=== PATIENT | female | born 1990 | race Two or more races ===

== ENCOUNTER 2022-12-31 14:47 | Emergency (ER) | payer OTHER, SELFPAY ==
--- NOTE | ~2022-12-31 | CT_ITS ---
EXAMINATION: CT ABDOMEN AND PELVIS WITHOUT CONTRAST CLINICAL INFORMATION: Left lower quadrant abdominal pain COMPARISON: None available. TECHNIQUE: Multidetector volumetric imaging was performed from the superior aspect of the liver through the pubic symphysis. Sagittal and coronal reformatted images were obtained on the technologist's workstation. This CT examination was performed using dose optimization techniques as appropriate, variously including the following: *Automated exposure control *Adjustment of mA and/or kV according to patient size (this includes techniques or standardized protocols for targeted exams where dose is matched to indication/reason for exam; i.e. extremities or head) *Use of iterative reconstruction technique DLP: 554 mGy-cm FINDINGS: LUNG BASES: The visualized lung bases are unremarkable. LIVER, GALLBLADDER, AND BILIARY TREE: The liver is normal in size, shape, and attenuation. No focal hepatic lesion or biliary ductal dilatation is present. Curvilinear calcification in the right lobe of the liver noted. The gallbladder is unremarkable with no evidence of radiopaque gallstones, gallbladder wall thickening, or obvious pericholecystic inflammatory changes. PANCREAS: Unremarkable. SPLEEN: Unremarkable. ADRENAL GLANDS: Unremarkable. KIDNEYS AND URETERS: The kidneys are normal in size, shape, and attenuation. No hydronephrosis, hydroureter, or calculi seen. No perinephric stranding. BLADDER: Unremarkable. GASTROINTESTINAL TRACT: The stomach is unremarkable. Normal caliber of the small bowel. There is no obstruction. A normal appendix is identified. No colonic wall thickening or acute inflammation. Mild to moderate diffuse colonic stool burden. This is greatest at the left hemicolon through the sigmoid colon. No free air or free fluid. ABDOMINAL WALL: No significant hernia is appreciated. LYMPH NODES: Normal. VASCULAR: Unremarkable. PELVIC VISCERA: Retroverted uterus. No adnexal mass. Possible Bartholin's gland cyst along the left aspect of the vagina. This measures 1 cm. OSSEOUS STRUCTURES: No acute or suspicious osseous abnormality. CT/CT abdomen pelvis wo IV con IMPRESSION: No acute findings in the abdomen or pelvis. No inflammatory changes. Mild to moderate colonic stool burden. Fleischner guidelines were followed.
--- NOTE | 2022-12-31 15:23 | ED_ITS ---
HPI - Syncope General Chief Complaint: General Medical Stated Complaint: cramping, syncope Time Seen by Provider: 12/31/22 16:01 Source: patient and RN notes reviewed Mode of arrival: ambulatory Limitations: no limitations History of Present Illness HPI narrative: This is a 32-year-old female presenting to the emergency department with complaints of dizziness and lightheadedness which occurred at work today. Pat kulwinder states that while she was cleaning she noticed that she became dizzy and had to sit down. She states that she did not lose consciousness or hit her head. She does admit that she has had sharp intermittent cramping in her abdomen, which occurred just prior to having the presyncopal episode today. She reports that she had many episodes of diarrhea last week and admits to not staying well hydrated since. Denies any fevers, chills, chest pain, shortness breath, palpitations, nausea, vomiting, or diarrhea. She had just travels to [facility], otherwise no other travel, surgery, hospitalizations, estrogen use, blood clot hx of hx of cancer. No other complaints or concerns at this time. MD complaint: felt faint Prodromal symptoms: none Witnessed: Yes - by Bystander Injuries sustained associated with event: none Current symptoms: none Treatments prior to arrival: none Related Data Allergies Allergy/AdvReac Type Severity Reaction Status Date / Time adhesive Allergy Rash Verified 12/31/22 15:25 Iodinated Contrast Media Allergy Anaphylaxis Verified 12/31/22 17:43 [Contrast Dye] seafood Allergy Anaphylaxis Verified 12/31/22 15:25 Review of Systems Review of Systems: Yes all other systems are reviewed and are negative Constitutional: Constitutional: Reports as per [facility] Social History Social History Advance Directives: No Advance Directives Information Provided: No Physical Exam Vital Signs: Vital Signs: Last Vital Signs Temp 97.7 F 12/31/22 19:09 Pulse 74 12/31/22 19:09 Resp 20 12/31/22 19:09 BP 109/78 12/31/22 19:09 Pulse Ox 100 12/31/22 19:09 O2 Del Method Room Air 12/31/22 19:09 BMI result Body Mass Index 33.6 Const: General: cooperative, comfortable and no acute distress Orientation/consciousness: patient oriented x3 Limitations: no limitations HEENT: Other: no nystagmus Head: Yes normal to inspection, Yes normocephalic and Yes atraumatic Ears: hearing grossly normal bilaterally General nose exam: Normal external nose present Face and sinus: Yes normal facial exam Mouth: Normal oral and pa latal mucosa present, oropharynx normal and moist mucous membranes Throat: Yes posterior oropharynx normal Eyes: General: appearance normal, both eyes and all related structures Eyelids: Yes eyelids normal Conjunctivae: conjunctivae normal Sclerae: sclerae normal Pupils: Equal, round and reactive pupils present EOM: EOMs intact bilaterally Neck: Neck: Yes normal visual inspection, Yes full ROM and Yes no lymphadenopathy Lymphatic: no lymphadenopathy noted Chest: Chest palpation & inspection: normal inspection of the chest Resp: Effort & Inspection: normal respiratory effort and able to speak in complete sentences Auscultation: clear to auscultation bilaterally, no crackles, no rales, no rhonchi and no wheezes Cardio: Rate: regular rate Rhythm: regular rhythm Heart sounds: S1 normal heart sound present and S2 normal heart sound present GI: Other: abdomen is soft, with TTP in left lower quadrant. No rebound or guarding. Normoactive bowel sounds present. Inspection: Yes normal to inspection Skin: General skin exam: no rashes or lesions noted Trauma: no lacerations or abrasions Wounds: no wounds Neuro: General: patient oriented x3 and moves all extremities Cranial nerves: Yes CN's II-XII intact bilaterally, Yes Equal, round and reactive pupils present, Yes Bilaterally intact EOM present and Yes Nystagmus not present Cognition (Neuro): normal cognition Gait exam (Neuro): Normal gait present Motor exam (neuro): 5/5 motor strength present throughout and Pronator motor function not present Extrem: General: Yes normal to inspection Right upper extremity: normal to inspection Left upper extremity: normal to inspection Right lower extremity: normal to inspection Left lower extremity: normal to inspection Course Course Course Narrative: RME - 32 yo female with history of vertigo presents to the ER for evaluation of an episode of pre-syncope that happened today at work when she was cleaning. She felt suddenly lightheaded, dizzy, was pale. She reports prior to this she was having intermittent 9/10 abdominal cramping. LMP 12/19/22. Symptoms mostly resolved w/ rest but still feels dizzy. No history of similar episodes. Plan: labs, UA, Upreg, EKG, orthostatic VS Reevaluation(s) Reevaluation #1: workup reassuring today. CT negative. Given return precautions for any new or worsening symptoms. Pt understands and agrees with plan. Stable for d/c. Medical Decision Making Medical Decision Making [facility] Narrative: 32-year-old female presenting to the emergency department for evaluation of presyncopal episode which occurred today. On arrival, patient's vital signs within normal limits. DDX including dehydration, electrolyte abnormality, , orthostatic hypotension. PE was considered given ?presyncopal episode, however patient has had no chest pain, shortness of breath, hypoxia or tachycardia, and she is PERC negative. PT is nontoxic appearing, and otherwise stable, will obtain labs, UA, and CT abdomen given LLQ pain on examination to r/o divertiuclitis. Differential Diagnosis Differential Diagnoses: The differential diagnosis associated with the presentation includes See above Admission/Observation Consideration of admission/observation: Escalation of care including admission/observation considered Patient would have been admitted to the hospital had her work up had any findings where hospital admission was appropriate and her clinical presentation warranted hospital admission. Lab Data [facility] Lab Attestation statement: I reviewed the patient's lab results. No leukocytosis, stable H&H 12/31/22 15:45 12/31/22 15:45 Labs: Lab Results 12/31/22 12/31/22 12/31/22 Range/Units 15:45 15:45 15:54 WBC 6.6 (4.8-10.8) X10*3/uL RBC 4.20 (4.20-5.50) X10*6/uL Hgb 12.2 (12.0-16.0) g/dl Hct 36.7 L (37.0-47.0) % MCV 87.4 (80.0-98.0) fL MCH 29.0 (27.0-33.0) pg MCHC 33.2 (31.0-35.0) g/dl RDW 11.9 (11.0-16.0) % Plt Count 230 (160-400) X10*3/uL MPV 9.3 L (9.4-12.3) fL Immature Gran % (Auto) 0.3 (0.0-0.4) % Neut % (Auto) 79.0 H (45-73) % Lymph % (Auto) 13.3 L (20-40) % Weston % (Auto) 6.6 (2-11) % Eos % (Auto) 0.3 (0-4) % Baso % (Auto) 0.5 (0-2) % Lymph # (Auto) 0.9 L (1.2-4.9) X10*3/uL Weston # (Auto) 0.4 (0.1-1.2) X10*3/uL Eos # (Auto) 0.0 (0.0-0.4) X10*3/uL Baso # (Auto) 0.0 (0.0-0.2) X10*3/uL Abs Immat Gran (auto) 0.02 (0.00-0.03) X10*3/uL Absolute Neuts (auto) 5.3 (2.0-8.3) x10*3/uL Absolute Nucleated RBC 0.000 (0.0-0.012) X10*3/uL Nucleated RBC % (auto) 0.0 (0.0-0.2) /100WBC Sodium 139 (135-145) mmol/L Potassium 4.0 (3.3-5.1) mmol/L Chloride 105 (96-108) mmol/L Carbon Dioxide 27 (22-29) mmol/L Anion Gap 11 L (12-20) BUN 15 (9-16) mg/dL Creatinine 0.72 (0.5-1.4) mg/dL Estim Creat Clear Calc 109.9 Estimated GFR > 60 Random Glucose 109 (60-115) mg/dL Calcium 9.9 (8.4-10.2) mg/dL Magnesium 2.2 (1.6-2.6) mg/dL Total Bilirubin 0.5 (0.0-1.0) mg/dL Direct Bilirubin 0.2 (0.0-0.5) mg/dL AST 17 (5-31) U/L ALT 18 (0-31) U/L Alkaline Phosphatase 62 (39-117) U/L Total Protein 7.5 (6.5-8.0) g/dL Albumin 4.3 (3.5-5.0) g/dL Urine Color Yellow Urine Appearance Clear Urine pH 5.5 (5.0-9.0) Ur Specific [place] 1.025 (1.005-1.025) Urine Protein Negative (Neg-Trace) mg/dL Urine Glucose (UA) Negative (Negative) mg/dL Urine Ketones Trace (Negative) mg/dL Urine Blood Negative (Negative) Urine Nitrite Negative (Negative) Ur Leukocyte Esterase Negative (Negative) Urine Test (NEGATIVE) 12/31/22 Range/Units 15:54 WBC (4.8-10.8) X10*3/uL RBC (4.20-5.50) X10*6/uL Hgb (12.0-16.0) g/dl Hct (37.0-47.0) % MCV (80.0-98.0) fL MCH (27.0-33.0) pg MCHC (31.0-35.0) g/dl RDW (11.0-16.0) % Plt Count (160-400) X10*3/uL MPV (9.4-12.3) fL Immature Gran % (Auto) (0.0-0.4) % Neut % (Auto) (45-73) % Lymph % (Auto) (20-40) % Weston % (Auto) (2-11) % Eos % (Auto) (0-4) % Baso % (Auto) (0-2) % Lymph # (Auto) (1.2-4.9) X10*3/uL Weston # (Auto) (0.1-1.2) X10*3/uL Eos # (Auto) (0.0-0.4) X10*3/uL Baso # (Auto) (0.0-0.2) X10*3/uL Abs Immat Gran (auto) (0.00-0.03) X10*3/uL Absolute Neuts (auto) (2.0-8.3) x10*3/uL Absolute Nucleated RBC (0.0-0.012) X10*3/uL Nucleated RBC % (auto) (0.0-0.2) /100WBC Sodium (135-145) mmol/L Potassium (3.3-5.1) mmol/L Chloride (96-108) mmol/L Carbon Dioxide (22-29) mmol/L Anion Gap (12-20) BUN (9-16) mg/dL Creatinine (0.5-1.4) mg/dL Estim Creat Clear Calc Estimated GFR Random Glucose (60-115) mg/dL Calcium (8.4-10.2) mg/dL Magnesium (1.6-2.6) mg/dL Total Bilirubin (0.0-1.0) mg/dL Direct Bilirubin (0.0-0.5) mg/dL AST (5-31) U/L ALT (0-31) U/L Alkaline Phosphatase (39-117) U/L Total Protein (6.5-8.0) g/dL Albumin (3.5-5.0) g/dL Urine Color Urine Appearance Urine pH (5.0-9.0) Ur Specific [place] (1.005-1.025) Urine Protein (Neg-Trace) mg/dL Urine Glucose (UA) (Negative) mg/dL Urine Ketones (Negative) mg/dL Urine Blood (Negative) Urine Nitrite (Negative) Ur Leukocyte Esterase (Negative) Urine Test NEGATIVE (NEGATIVE) Radiology Impression Discussion of test interpretation with radiology: I have reviewed the radiologist's reading. Radiologist Impression: [place] [id number] CT Scan Report Signed Patient: Richelle Moscoso MR#: [id number] : 1990 Acct:[id number] Age/Sex: 32 / F ADM Date: 12/31/22 Loc: .ED Attending Dr: Ordering Physician: Anaya Pace Date of Service: 12/31/22 Procedure(s): CT abdomen pelvis wo IV con Accession Number(s): [id number] cc: Anaya Pace~ EXAMINATION: CT ABDOMEN AND PELVIS WITHOUT CONTRAST? CLINICAL INFORMATION: Left lower quadrant abdominal pain? COMPARISON: None available. TECHNIQUE: Multidetector volumetric imaging was performed from the superior aspect of the liver through the pubic symphysis. Sagittal and coronal reformatted images were obtained on the technologist's workstation.? This CT examination was performed using dose optimization techniques as appropriate, variously including the following: *Automated exposure control *Adjustment of mA and/or kV according to patient size (this includes techniques or standardized protocols for targeted exams where dose is matched to indication/reason for exam; i.e. extremities or head) *Use of iterative reconstruction technique DLP: 554 mGy-cm FINDINGS: LUNG BASES: The visualized lung bases are unremarkable.? LIVER, GALLBLADDER, AND BILIARY TREE: The liver is normal in size, shape, and attenuation. No focal hepatic lesion or biliary ductal dilatation is present. Curvilinear calcification in the right lobe of the liver noted. The gallbladder is unremarkable with no evidence of radiopaque gallstones, gallbladder wall thickening, or obvious pericholecystic inflammatory changes.? PANCREAS: Unremarkable.? SPLEEN: Unremarkable.? ADRENAL GLANDS: Unremarkable.? KIDNEYS AND URETERS: The kidneys are normal in size, shape, and attenuation. No hydronephrosis, hydroureter, or calculi seen. No perinephric stranding. ? BLADDER: Unremarkable.? GASTROINTESTINAL TRACT: The stomach is unremarkable. Normal caliber of the small bowel. There is no obstruction. A normal appendix is identified. No colonic wall thickening or acute inflammation. Mild to moderate diffuse colonic stool burden. This is greatest at the left hemicolon through the sigmoid colon. No free air or free fluid.? ABDOMINAL WALL: No significant hernia is appreciated.? LYMPH NODES: Normal. VASCULAR: Unremarkable. PELVIC VISCERA: Retroverted uterus. No adnexal mass. Possible Bartholin's gland cyst along the left aspect of the vagina. This measures 1 cm. OSSEOUS STRUCTURES: No acute or suspicious osseous abnormality.? CT/CT abdomen pelvis wo IV con IMPRESSION: No acute findings in the abdomen or pelvis. No inflammatory changes. Mild to moderate colonic stool burden. ? Fleischner guidelines were followed. Dictated By: Orion Lee MD External Record Review External record reviewed: Inpatient record, Office record, Outpatient record, Prior outpatient labs, Prior outpatient radiology, Primary care record and Outside ED record Discharge Plan Discharge Clinical Impression: Pre-syncope Patient Disposition: Home, Self-Care Instructions: Near Syncope (ED) Additional Instructions: It is unclear what caused you to have the symptoms today however your workup today was reassuring. Your lab work, and urine were reassuring. You do not have a urinary tract infection. EKG was reassuring. Your CT revealed [id number] stool burden, otherwise was unremarkable. Please drink plenty of fluids get plenty of rest. Follow-up with your primary care physician regarding this visit. If any new or worsening symptoms occur including but not limited to chest pain, shortness of breath, palpitations, please return to the emergency department for further evaluation. Stand Alone Forms: Work/School Release Interventions: ED Discharge Assessment Last Done: 12/31/22 19:09 Discharge Date/Time: 12/31/22 19:10
[2022-12-31 15:25] VITALS: BP 125/73; PULSE 83; RESP 16; TEMP 36.8; O2SAT 98; BMI 33.6
--- NOTE | 2022-12-31 15:26 | ECG_ITS ---
Test Reason : PRE SYNCOPE Blood Pressure : / mmHG Vent. Rate : 079 BPM Atrial Rate : 079 BPM P-R Int : 132 ms QRS Dur : 092 ms QT Int : 366 ms P-R-T Axes : 023 031 -18 degrees QTc Int : 419 ms Normal sinus rhythm with sinus arrhythmia Nonspecific T wave abnormality Abnormal ECG No previous ECGs available Referred By: Lizz De Leon Electronically Signed By:Uzair Mclean
[2022-12-31 15:51] LABS: MANUAL DIFF FLAG NO
[2022-12-31 15:56] LABS: Basophils Percent Auto 0.5 % (0-2); Eosinophils Percent Auto 0.3 % (0-4); Hematocrit 36.7 % (37.0-47.0); Hemoglobin 12.2 g/dl (12.0-16.0); Imm Gran Abs Auto 0.02 X10*3/uL (0.00-0.03); Imm Gran Pct Auto 0.3 % (0.0-0.4); Lymphocytes Absolute Auto 0.9 X10*3/uL (1.2-4.9); Lymphocytes Percent Auto 13.3 % (20-40); Mean Corpuscular HGB Conc 33.2 g/dl (31.0-35.0); Mean Corpuscular Volume 87.4 fL (80.0-98.0); Mean Platelet Volume 9.3 fL (9.4-12.3); Monocytes Absolute Auto 0.4 X10*3/uL (0.1-1.2); Monocytes Percent Auto 6.6 % (2-11); Neutrophils Absolute Auto 5.3 x10*3/uL (2.0-8.3); Platelet Count 230 X10*3/uL (160-400); Red Cell Distribution Width 11.9 % (11.0-16.0); White Blood Count 6.6 X10*3/uL (4.8-10.8)
[2022-12-31 15:58] VITALS: BP 100/63; PULSE 71
[2022-12-31 16:01] VITALS: BP 110/73; PULSE 81
[2022-12-31 16:02] VITALS: BP 109/74; PULSE 82
[2022-12-31 16:04] VITALS: BP 100/63; PULSE 71; RESP 18; O2SAT 98
[2022-12-31 16:13] LABS: Alanine Aminotransferase 18 U/L (0-31); Albumin Level 4.3 g/dL (3.5-5.0); Alkaline Phosphatase 62 U/L (39-117); Anion Gap 11 (12-20); Aspartate Amino Transferase 17 U/L (5-31); Bilirubin Direct 0.2 mg/dL (0.0-0.5); Bilirubin Total 0.5 mg/dL (0.0-1.0); Blood Urea Nitrogen 15 mg/dL (9-16); Calcium 9.9 mg/dL (8.4-10.2); Carbon Dioxide 27 mmol/L (22-29); Chloride 105 mmol/L (96-108); Creatinine Clr Calc Pharmacy 109.9; Estimated Glomerular Filt Rate > 60; Glucose Random 109 mg/dL (60-115); Magnesium 2.2 mg/dL (1.6-2.6); Sodium 139 mmol/L (135-145); Total Protein 7.5 g/dL (6.5-8.0)
[2022-12-31 16:19] LABS: UPreg QC Valid YES; Urine Pregnancy NEGATIVE (NEGATIVE)
[2022-12-31 16:21] LABS: Appearance Urine Clear; Color Urine Yellow; Glucose Urine UA Negative (Negative); Leukocyte Esterase Urine Negative (Negative); Nitrite Urine Negative (Negative); PH 5.5 (5.0-9.0); Specific Gravity - Urine 1.025 (1.005-1.025); Urine Blood Negative (Negative); Urine Ketones Trace mg/dL (Negative); Urine Protein Negative (Neg-Trace)
[2022-12-31 19:09] VITALS: BP 109/78; PULSE 74; RESP 20; TEMP 36.5; O2SAT 100
== END 2022-12-31 19:10 | disposition home or self-care (01) ==
PROVIDERS: Physician Assistant; Emergency Provider Student in an Organized Health Care Education/Training Program; PCP Internal Medicine
DX: R55 Syncope and collapse (principal); R25.2 Cramp and spasm; R10.32 Left lower quadrant pain; I49.8 Other specified cardiac arrhythmias; Z79.899 Other long term (current) drug therapy
CPT/HCPCS: 36415; 74176; 80048; 80076; 81003; 81025; 83735; 85025; 93005; 99284

== ENCOUNTER → 2022-12-31 15:26 | Outpatient (BNV) | payer OTHER, SELFPAY | PROVIDERS: Emergency Provider Student in an Organized Health Care Education/Training Program; PCP Internal Medicine; Visit Provider Internal Medicine Cardiovascular Disease | DX: R94.31 Abnormal electrocardiogram [ECG] [EKG] (principal) | CPT/HCPCS: 93010 ==

== ENCOUNTER 2024-11-21 11:25 | Emergency (ER) | payer OTHER, SELFPAY ==
--- NOTE | ~2024-11-21 | MR_ITS ---
CLINICAL HISTORY: acute hypertensive encephalopathy --- Additional Notes or Special Instructions: acute hypertensive encephalopathy on CT brain non-con MR Brain with and without gadolinium Comparison: CT/SR - HEAD HEAD_WITHOUT (ADULT) - 11/21/24 17:15 EDT Findings: No restricted diffusion. No intra-axial mass or hemorrhage. No midline shift. No hydrocephalus. Vascular flow voids are intact. The orbits are normal. The sinuses and mastoid air cells are clear. 4 mm T1 hypointense lesion within the interpolar region of the pituitary is seen. No focal bone lesion. IMPRESSION: No acute findings. CT demonstrated subtle decreased attenuation within the posterior occipital lobe bilaterally, likely artifactual due to beam hardening or volume averaging. A 4 mm T1 hypointense nonenhancing lesion within the interpolar region of the pituitary may represent a benign Rathke's cyst. This document has been electronically signed by: Josey Rowe MD on 11/21/2024 21:18:33
--- NOTE | ~2024-11-21 | CT_ITS ---
CLINICAL HISTORY: headache CT head without contrast. COMPARISON: None provided. FINDINGS: The visualized paranasal sinuses are clear. The mastoid air cells are clear. No calvarial fracture. No evidence for mass or mass effect. No intracranial hemorrhage or abnormal extra-axial fluid collection. Subtle patchy decreased corticomedullary differentiation within the posterior occipital lobes bilaterally No evidence of hydrocephalus. The basilar cisterns are patent. Posterior fossa appears unremarkable. IMPRESSION: 1. No intracranial hemorrhage. 2. Subtle patchy decreased attenuation of the posterior occipital lobes bilaterally raising suspicion for acute hypertensive encephalopathy. MR may be helpful for further characterization. This document has been electronically signed by: Jf Gamboa MD on 11/21/2024 18:34:33
[2024-11-21 12:27] VITALS: BP 136/76; PULSE 71; RESP 16; TEMP 36.3; O2SAT 100; BMI 34.0
--- NOTE | 2024-11-21 12:28 | ED.GENADULT ---
HPI - General Adult General Chief complaint: General Medical Stated complaint: headache feels warm Time Seen by Provider: 11/21/24 16:11 Source: patient and RN notes reviewed Mode of arrival: ambulatory Limitations: no limitations History of Present Illness ED Provider: Anaya Springer PA-C HPI narrative: This is a 34-year-old female who presents emergency department with concerns of headache and nausea x2 days. Patient reports that on Thursday she developed a headache. She states that she has had intermittent nausea and headache since. She states today she had a very severe headache. She states that her headache has improved however she continues to have a headache. She denies any fevers, chills, chest pain, shortness of breath, abdominal pain, vomiting, diarrhea or constipation. She admits that she was spending a lot of time outdoors this weekend in the heat. Denies taking any medications today to treat her symptoms. No other complaints or concerns at this time. MD complaint: Headache, nausea Onset (ago): day(s) Location: head Relieving factors: none Exacerbating factors: none Associated symptoms: denies other symptoms Treatments prior to arrival: none Related Data Allergies Allergy/AdvReac Type Severity Reaction Status Date / Time adhesive Allergy Rash Verified 11/21/24 12:28 Iodinated Contrast Media Allergy Anaphylaxis Verified 11/21/24 12:28 (Contrast Dye) seafood Allergy Anaphylaxis Verified 11/21/24 12:28 Review of Systems Review of Systems: Yes all other systems are reviewed and are negative Constitutional: Constitutional: Reports as per [facility] Social History Social History Smoked in Last 30 Days: No Use of substances other than those prescribed or required for medical reasons: No Advance Directives: No Advance Directives Information Provided: Yes Do you have a plan to hurt others: No Plan Physical Exam ED Vital Signs: Vital Signs - 24 hr 11/21/24 12:27 11/21/24 16:07 11/21/24 18:48 Temperature 97.4 F 97.6 F 98.4 F Pulse Rate 71 64 79 Respiratory Rate 16 18 20 Blood Pressure 136/76 117/79 119/66 Pulse Oximetry 100 100 100 Oxygen Delivery Method Room Air Room Air Room Air BMI result Body Mass Index 34.0 Const General: cooperative, comfortable and no acute distress Orientation/consciousness: patient oriented x3 Limitations: no limitations [facility] Head: Yes normal to inspection, Yes normocephalic and Yes atraumatic Ears: hearing grossly normal bilaterally General nose exam: Normal external nose present Face and sinus: Yes normal facial exam Mouth: Normal oral and palatal mucosa present, oropharynx normal and moist mucous membranes Throat: Yes posterior oropharynx normal Eyes General: appearance normal, both eyes and all related structures Eyelids: Yes eyelids normal Conjunctivae: conjunctivae normal Sclerae: sclerae normal Pupils: Equal, round and reactive pupils present EOM: EOMs intact bilaterally Neck Neck: Yes normal visual inspection, Yes full ROM and Yes no lymphadenopathy Lymphatic: no lymphadenopathy noted Chest Chest palpation & inspection: normal inspection of the chest Resp Effort & Inspection: normal respiratory effort and able to speak in complete sentences Auscultation: clear to auscultation bilaterally, no crackles, no rales, no rhonchi and no wheezes Cardio Rate: regular rate Rhythm: regular rhythm Heart sounds: S1 normal heart sound present and S2 normal heart sound present GI Inspection: Yes normal to inspection Skin General skin exam: no rashes or lesions noted Trauma: no lacerations or abrasions Wounds: no wounds Neuro General: patient oriented x3 and moves all extremities Cranial nerves: Yes CN's II-XII intact bilaterally and Yes Equal, round and reactive pupils present Cognition (Neuro): normal cognition Gait exam (Neuro): Normal gait present Motor exam (neuro): 5/5 motor strength present throughout and Pronator motor function not present Extrem General: Yes normal to inspection Right upper extremity: normal to inspection Left upper extremity: normal to inspection Right lower extremity: normal to inspection Left lower extremity: normal to inspection Course Course Course Narrative: RME performed by Nohemy Callaway PA-C. Patient is a 34 year old assigned female at presenting to the emergency department with nausea, no vomiting, no diarrhea. Patient states that over the last few days she has felt generally nauseous. Detailed physical exam and review of systems are deferred to the supervisor screen printing. Labs ordered. Patient placed back in the waiting room pending room availability and results. Reevaluation(s) Reevaluation #1: Declan Huynh PA-C have accepted care of the patient and signed out pending imaging and final disposition. The patient is treated for a migraine type headache, she is improving, her headache is much better, she is sitting up in bed eating and drinking. CT of the brain pending CT brain:IMPRESSION: 1. No intracranial hemorrhage. 2. Subtle patchy decreased attenuation of the posterior occipital lobes bilaterally raising suspicion for acute hypertensive encephalopathy. MR may be helpful for further characterization. MRI brain: IMPRESSION: No acute findings. CT demonstrated subtle decreased attenuation within the posterior occipital lobe bilaterally, likely artifactual due to beam hardening or volume averaging. A 4 mm T1 hypointense nonenhancing lesion within the interpolar region of the pituitary may represent a benign Rathke's cyst. Medications Administered Discontinued Medications Generic Name Dose Route Start Last Admin Trade Name Freq PRN Reason Stop Dose Admin Gadobutrol 10 ml 11/21/24 20:42 11/21/24 20:43 Gadobutrol 10 Ml Vial IVPUSH 11/21/24 20:43 8 ml ONCE ONE Administration Sodium Chloride 1,000 mls @ 999 mls/hr 11/21/24 16:28 11/21/24 18:51 Ns IV 11/21/24 17:28 Infused .Q1H1M ONE Infusion Acetaminophen 1,000 mg in 100 mls @ 400 mls/hr 11/21/24 16:28 11/21/24 18:27 Ofirmev IV 11/21/24 16:42 Infused ONCE ONE Infusion Sodium Chloride 1,000 mls @ 999 mls/hr 11/21/24 17:24 11/21/24 19:56 Ns IV 11/21/24 18:24 Infused .Q1H1M ONE Infusion Midazolam HCl 4 mg 11/21/24 19:24 11/21/24 19:51 Midazolam Hcl 2 Mg/2 Ml Vial IVPUSH 11/21/24 19:25 4 mg ONCE ONE Administration Medical Decision Making Medical Decision Making [facility] Narrative: this is a 34-year-old female, with no known medical problems, who presents emergency department with complaints of nausea and headache for the last 3 days. On arrival, vital signs within normal limits. She is speaking full sentences under no acute distress. She is neurologically intact. She has no abdominal pain. She states that her nausea has improved, but remains to have a headache. She describes this pain in her head as a throbbing, sharp pain, denies any vision changes. No neurologic deficits on examination. She denies taking any medications at home to treat her current symptoms. She denies history of migraines. Differential diagnoses include electrolyte derangement, dehydration, tension headache, migraine headache. Course: labs were obtained, no leukocytosis, stable H&H, chemistry within normal limits. She is not . Urine appears to be contaminated, does report urinary frequency, denies any dysuria or hematuria. Will await culture for treatment. Patient tested negative for COVID, flu, RSV. Head CT still pending for radiology report. She has been given IV fluids, as well as IV Tylenol. We will continue to closely monitor pending symptomatic improvement and head CT. sign-out given to my colleague, Maine Huynh pending CT report and re-eval. Differential Diagnosis Differential Diagnoses: The differential diagnosis associated with the presentation includes See above Admission/Observation Consideration of admission/observation: Escalation of care including admission/observation considered Lab Data [facility] Lab Attestation statement: I reviewed the patient's lab results. see MDM and course 11/21/24 12:53 11/21/24 12:53 Labs: Lab Results 11/21/24 11/21/24 11/21/24 Range/Units 12:53 16:03 17:14 WBC 6.2 (4.8-10.8) X10*3/uL RBC 4.25 (4.20-5.50) X10*6/uL Hgb 12.8 (12.0-16.0) g/dl Hct 37.0 (37.0-47.0) % MCV 87.1 (80.0-98.0) fL MCH 30.1 (27.0-33.0) pg MCHC 34.6 (31.0-35.0) g/dl RDW 12.0 (11.0-16.0) % Plt Count 257 (160-400) X10*3/uL MPV 9.2 L (9.4-12.3) fL Immature Gran % (Auto) 0.5 H (0.0-0.4) % Neut % (Auto) 56.7 (45-73) % Lymph % (Auto) 32.4 (20-40) % Beauregard % (Auto) 7.7 (2-11) % Eos % (Auto) 1.6 (0-4) % Baso % (Auto) 1.1 (0-2) % Lymph # (Auto) 2.0 (1.2-4.9) X10*3/uL Beauregard # (Auto) 0.5 (0.1-1.2) X10*3/uL Eos # (Auto) 0.1 (0.0-0.4) X10*3/uL Baso # (Auto) 0.1 (0.0-0.2) X10*3/uL Abs Immat Gran (auto) 0.03 (0.00-0.03) X10*3/uL Absolute Neuts (auto) 3.5 (2.0-8.3) x10*3/uL Absolute Nucleated RBC 0.000 (0.0-0.012) X10*3/uL Nucleated RBC % (auto) 0.0 (0.0-0.2) /100WBC Sodium 137 (135-145) mmol/L Potassium 4.2 (3.3-5.1) mmol/L Chloride 107 (96-108) mmol/L Carbon Dioxide 24 (22-29) mmol/L Anion Gap 10 L (12-20) BUN 12 (9-16) mg/dL Creatinine 0.59 (0.5-1.4) mg/dL Estim Creat Clear Calc 132.4 Estimated GFR > 60 Random Glucose 91 (60-115) mg/dL Calcium 9.2 D (8.4-10.2) mg/dL Magnesium 2.1 (1.6-2.6) mg/dL Total Bilirubin 0.3 (0.0-1.0) mg/dL AST 19 (5-31) U/L ALT 19 (0-31) U/L Alkaline Phosphatase 57 (39-117) U/L Total Protein 7.5 (6.5-8.0) g/dL Albumin 4.6 (3.5-5.0) g/dL Beta HCG, Quant < 2 mIU/mL Urine Color Yellow Yellow Urine Appearance Clear Clear Urine pH 7.0 6.0 (5.0-9.0) Ur Specific Crawford 1.015 <= 1.005 (1.005-1.025) Urine Protein Negative Negative (Neg-Trace) mg/dL Urine Glucose (UA) Negative Negative (Negative) mg/dL Urine Ketones Negative Negative (Negative) mg/dL Urine Blood Negative Negative (Negative) Urine Nitrite Negative Negative (Negative) Ur Leukocyte Esterase Small (1+) H Negative (Negative) Urine RBC 0-2 (0-2) /HPF Urine WBC 6-10 H (0-5) /HPF Ur Squamous Epith Cells 11-20 (0-2) /HPF Urine Bacteria Trace (None Seen) Hyaline Casts 0-2 (0-2) /LPF Influenza Type A (PCR) NEGATIVE (Negative) Influenza Type B (PCR) NEGATIVE (Negative) RSV RNA Qual (PCR) NEGATIVE (Negative) SARS-CoV-2 RNA (RT-PCR) NEGATIVE (Negative) Radiology Impression Discussion of test interpretation with radiology: I have reviewed the radiologist's reading. Discharge Plan Discharge Clinical Impression: Headache Patient Disposition: Home, Self-Care Instructions: Acute Headache (ED) Additional Instructions: You were seen in the emergency department due to a headache and nausea. Your labs were reassuring. We medicated you with IV fluids and IV Tylenol. Please get plenty of rest and drink plenty of fluids. The CT scan of your brain revealed concern for findings associated with the uncontrolled hypertension, we obtained an MRI. It was an over-read, the MRI is normal. If any new or worsening symptoms occur including but not limited to worsening headache, dizziness, blurred vision, please seek emergent care. Stand Alone Forms: Work/School Release Print Language: Kyrgyz
[2024-11-21 13:02] LABS: MANUAL DIFF FLAG NO
[2024-11-21 13:04] LABS: Basophils Absolute Auto 0.1 X10*3/uL (0.0-0.2); Basophils Percent Auto 1.1 % (0-2); Eosinophils Absolute Auto 0.1 X10*3/uL (0.0-0.4); Eosinophils Percent Auto 1.6 % (0-4); Hemoglobin 12.8 g/dl (12.0-16.0); Imm Gran Abs Auto 0.03 X10*3/uL (0.00-0.03); Imm Gran Pct Auto 0.5 % (0.0-0.4); Lymphocytes Percent Auto 32.4 % (20-40); Mean Corpuscular HGB Conc 34.6 g/dl (31.0-35.0); Mean Corpuscular Hemoglobin 30.1 pg (27.0-33.0); Mean Corpuscular Volume 87.1 fL (80.0-98.0); Mean Platelet Volume 9.2 fL (9.4-12.3); Monocytes Absolute Auto 0.5 X10*3/uL (0.1-1.2); Monocytes Percent Auto 7.7 % (2-11); Neutrophils Absolute Auto 3.5 x10*3/uL (2.0-8.3); Neutrophils Percent Auto 56.7 % (45-73); Platelet Count 257 X10*3/uL (160-400); Red Blood Count 4.25 X10*6/uL (4.20-5.50); White Blood Count 6.2 X10*3/uL (4.8-10.8)
[2024-11-21 13:24] LABS: Alanine Aminotransferase 19 U/L (0-31); Albumin Level 4.6 g/dL (3.5-5.0); Alkaline Phosphatase 57 U/L (39-117); Anion Gap 10 (12-20); Aspartate Amino Transferase 19 U/L (5-31); Bilirubin Total 0.3 mg/dL (0.0-1.0); Blood Urea Nitrogen 12 mg/dL (9-16); Calcium 9.2 mg/dL (8.4-10.2); Carbon Dioxide 24 mmol/L (22-29); Chloride 107 mmol/L (96-108); Creatinine Clr Calc Pharmacy 132.4; Estimated Glomerular Filt Rate > 60; Glucose Random 91 mg/dL (60-115); Magnesium 2.1 mg/dL (1.6-2.6); Potassium 4.2 mmol/L (3.3-5.1); Sodium 137 mmol/L (135-145); Total Protein 7.5 g/dL (6.5-8.0)
[2024-11-21 13:33] LABS: HCG Quantitative < 2 mIU/mL
[2024-11-21 13:40] LABS: Influenza A PCR NEGATIVE (Negative); Influenza B PCR NEGATIVE (Negative); Resp Syncy Virus RNA Qual PCR NEGATIVE (Negative); SARS COV2 PCR INHOUSE NEGATIVE (Negative)
--- OUTSIDE RECORDS SUMMARY | 2024-11-21 16:03 | XMS_ITS | Clinical Summary ---
Author Organization [facility] Address [address] [place] [address] Care Team Providers Care Solvent Plant Operator Name Role Phone Messi Gomes Primary Care Provider [phone] Source Comments PLEASE NOTE, if this patient is a minor, it may be UNLAWFUL to discuss sensitive information that is contained in these records (such as FAMILY PLANNING, MENTAL HEALTH or SUBSTANCE ABUSE) with the minor patient's parent or other person without the patient's specific authorization.[facility] Allergies No known active allergies Medications mupirocin (BACTROBAN) 2 % ointmentIndicatio ns:Boil, buttock Apply topically 3 (three) times daily. 15 g 0 4 Active medroxyPROGESTERo ne (DEPO-PROVERA) 150 mg/mL injectionIndicati ons:Family planning Inject 1 mL into the muscle every 3 (three) months. Per [facility]. 1 Syringe 4 Active docusate sodium (COLACE) 100 mg capsuleIndication s:Constipation, unspecified constipation type Take 1 Cap by mouth 2 (two) times daily 30 Cap 8 Active psyllium husk (METAMUCIL) 0.52 gram capsuleIndication s:Constipation, unspecified constipation type Take 1 Cap by mouth once daily 30 Cap 3 8 Active Active Problems No known active problems Immunizations Immunization Administration Dates Next Due Hep B, Adult/Adol (ENERGIX/RECOMBIVAX) 9 PPD 06/07/2018,12/27/2014 TDAP 06/07/2018 Family History Medical History Relation Name Comments Diabetes Maternal Grandmother Relation Name Status Comments Father Alive Maternal Grandmother Alive Mother Alive Social History Tobacco Use Types Packs/Day Years Used Date Smoking Tobacco: Never Smokeless Tobacco: Never Alcohol Use Standard Drinks/Week Comments No 0 (1 standard drink = 0.6 oz pur e alcohol) Social Connections Answer Date Recorded Social Connections and Isolation 0 01/15/2019 Financial Resource Strain Answer Date R ecorded Financial Resource Strain 0 2018 Stress Answer Date Recorded Stress 0 01/15/2019 Physical Activity Answer Date Recorded Physical Activity 0 01/15/2019 Food Insecurity Answer Date Recorded Food 0 01/15/2019 Transportation Needs Answer Date Record ed Transportation 0 01/15/2019 Housing Stability Answer Date Recorded Housing 0 01/15/2019 Safety and Environment Answer Date Suresh rded Safety 0 01/15/2019 Utilities Answer Date Recorded Utilities 0 01/15/2019 Employment Answer Date Recorded Employment 0 01/15/2019 Comments No Sex and Gender Information Value Date Recorded Sex Assigned at Female 10/09/2017 1:08 PM PDT Legal Sex Female 11:36 AM PDT Gender Identity Female 10/09/2017 1:08 PM PDT Sexual Orientation Straight 10/09/2017 1: 08 PM PDT Last Filed Vital Signs Vital Sign Reading Time Taken Comments Blood Pressure 110/70 10/09/2017 3:40 PM EDT Pulse 80 10/09/2017 3:40 PM EDT Temperature 37.2 C (99 F) 10/09/2017 3:40 PM EDT Respiratory Rate 20 10/09/2017 3:40 PM EDT Oxygen Saturation - - Inhaled Oxygen Concentration - - Weight 73 kg (161 lb) 10/09/2017 3:40 PM EDT Height 152.4 cm (5') 10/09/2017 3:40 PM EDT Body Mass Index 31.44 10/09/2017 3:40 PM EDT Plan of Treatment Health Maintenance Due Date Last Done Comments Anxiety Screening 1992 HPV Screening 1992 Pap + HPV 1992 Tobacco Screening 1992 Cervical Cancer Screening 2013 Pap Smear 2013 [id number] INJ 10/31/2013 08/08/2013 Imm-Hepatitis B (2 of 3 - 19 + 3-dose series) 07/05/2018 06/07/2018 Annual Wellness (Adult): Ind icated (All Coverage) 10/09/2018 10/09/2017, 12/26/2016, 12/27/2014 Relationship Safety Screening/Counseling 10/09/2018 10/09/2017 Hypertension Screening (#1) 10/08/2020 [id number] ( season) 2024 Alcohol and Drug Screen 05/25/2024 10/09/2017 Depression Annual Screen 05/25/2024 10/09/2017 Imm-Influenza (Season Ended) 2025 Imm-DTaP/Tdap/Td (2 - Td or Tdap) 06/07/2028 019 HIV Screening Completed 10/09/2017 Hepatitis C Screening Completed 10/09/2017, 017 Cervical Ablation/Cold-Knife Conization Discontinued Cervical Cryotherapy Discontinued Colposcopy Discontinued Endometrial Biopsy Discontinued Excision/Leep Discontinued HPV Genotyping Discontinued Vaginal Pap Discontinued Vulvoscopy Discontinued Procedures Procedure Name Priority Date/Time Associated Diagnosis Comments ANTIBODY HIV-1&HIV-2 SINGLE RESULT Routine 10/09/2017 4:20 PM EDT Exposure to STD HEPATITIS A,B,C PANEL Routine 10/09/2017 4:20 PM EDT Routine adult health maintenance from Last 3 Months or Most Recently Relevant to Health Maintenance Results * (ABNORMAL) HEPATITIS A,B,C PANEL (10/09/2017 4:20 PM EDT) HEPATITIS B SURFACE ANTIBODY POSITIVE(A) NEGATIVE [facility] HEPATITIS B SURFACE ANTIGEN NEGATIVE NEGATIVE [facility] Comment: Over the counter supplements containing high doses of biotin may interfere with this assay. If interference is suspected, patients shoud be retested after refraining from biotin supplements for 72 hours. HEPATITIS C VIRUS DIAGNOSTIC NEGATIVE NEGATIVE [facility] HEPATITIS B CORE ANTIBODY NEGATIVE NEGATIVE [facility] HEPATITIS A ANTIBODY TOTAL POSITIVE(A) NEGATIVE [facility] Comment: Over the counter supplements containing high doses of biotin may interfere with this assay. If interference is suspected, patients shoud be retested after refraining from biotin supplements for 72 hours. Blood specimen (specimen) Blood / Unknown 10/09/2017 4:20 PM EDT 10/09/2017 4:26 PM EDT [facility] - 10/09/2017 7:45 PM EDT [facility] [address] [place] [id number] PT ID [id number] ORD# [id number] Messi [facility] - BLOOD DRAW Edited Result - Final Performing Organization Address City/[facility]/ZIP Co de Phone Number [address] [address], * HIV-1 & HIV-2 ANTIBODIES (10/09/2017 4:20 PM EDT) [facility] HIV 1 AND 2 ANTIBODY SCREEN NEGATIVE NEGATIVE [facility] Comment: This assay is a 4th generation assay allowing for earlier detection of HIV infection by detecting the presence of the HIV-1 p24 antigen as well as the traditional antibodies to HIV type 1 (including group O) and type 2. Use of a 4th generation assay is the current CDC recommendation for HIV screening. Blood specimen (specimen) Blood / Unknown 10/09/2017 4:20 PM EDT 10/09/2017 4:26 PM EDT [facility] - 10/09/2017 8:14 PM EDT [facility] [address] [place] [id number] PT ID [id number] ORD# [id number] Messi [facility] - BLOOD DRAW Edited Result - Final Performing Organization Address City/[facility]/ZIP Co de Phone Number [address] [address], [place] [phone] from Last 3 Months or Most Recently Relevant to Health Maintenance Insurance [facility] [employer] Member Subscriber Plan / Payer (Ef fective 2017-Present) Name:Richelle Moscoso Relation to Subscriber:Self Name:Richelle Moscoso Payer ID:[id number] Group ID:Not on file Type:Medicaid Address: [address] [address] [place] [address] Care Teams Solvent Plant Operator Relationship Specialty Start Date End Date Messi Gomes PA [address] [place] [address] PCP - General Internal Medicine 01/15/17
--- OUTSIDE RECORDS SUMMARY | 2024-11-21 16:03 | XMS_ITS ---
Author Name [facility] Organization Unknown Problems Problem Status Onset Date Problem Type Date of Resoluti on Source Acute pharyngitis, unspecified active 2023-10-29 [address]_[facility] Encounters Encounter Type Encounter Reason Primary Diagnosis Location Date Ambulatory [facility] 10/29/2023 Ambulatory [facility] 06/27/2023 Care Team Organization Name Specialty Phone Email Start Date End Da te [facility] Not Found Primary Care 06/14/2023 [facility] 023 02/25/2023 [facility] 023
--- OUTSIDE RECORDS SUMMARY | 2024-11-21 16:03 | XMS_ITS | Clinical Summary ---
Author Organization [address] Building Address [address] [place] [phone] Phone Care Team Providers Care Planning Assistant Name Role Phone Diallo Vitale MD Primary Care Provider [phone] Allergies Active Allergy Reactions Criticality Noted Date Comments Adhesive Rash 04/19/2024 Iodinated Contrast Media 04/19/2024 Other Reaction(s): Doesnt' rermember Shellfish Containing Products Anaphylaxis High 04/19/2024 Shellfish Derived Hives 07/22/2019 Medications hydrOXYzine HCL (ATARAX) 10 mg tablet Take 1 tablet (10 mg total) by mouth every 8 (eight) hours if needed for anxiety for up to 10 days. 30 tablet 5 Active escitalopram (LEXAPRO) 5 mg tablet TAKE 1 TABLET BY MOUTH 1 TIME EACH DAY. 90 tablet 1 5 Active escitalopram (Lexapro) 5 mg tablet Take 1 tablet (5 mg total) by mouth 1 (one) time each day. 30 each 2 5 11/12/19 25 Discontinued Active Problems Problem Noted Date Diagnosed Date Mixed hyperlipidemia 06/27/2022 Near syncope 06/27/2022 Chest pain 06/26/2022 Vitamin D deficiency 04/14/2022 Urinary frequency 10/08/2021 Overview (03/08/2024): Last Assessment & Plan: Reassured no evidence of UTI. Encouraged pushing fluids and monitor for worsening sx. Vaginal discharge 10/08/2021 Overview (03/08/2024): Last Assessment & Plan: With normal pH and no signs of infection, no treatment today, but will send yeast culture and treat prn. Generalized anxiety disorder 04/10/2021 Moderate major depression (CMS/HCC V24, CMS/HCC V28) 04/10/2021 Encounters Date Type Department Care Team Description 08/23/2024 Telephone Internal Medicine - [facility] [address] [place] [address] Diallo Vitale MD Forms/questionnaires (Fmla Alfac) from Last 3 Months Immunizations Name Administration Dates Next Due Hepatitis B (Odowynh-E-Mqzxe , Recombivax HB-Adult) 19yo and older 06/07/2018 Influenza trivalent, 0.5mL, preservative free (Fluarix; FluLaval; Fluzone) ages 6mo and older (Afluria) 3 years and older 05/02/2019 Influenza, Unspecified 04/24/2021 Moderna SARS-CoV-2 COVID-19, mRNA, LNP-S, preservative free 04/24/2021,09/22/2020 Tdap Tetanus diptheria acell ular pertussis (Boostrix; Adacel) 7yo and older 06/07/2018 Surgical History Surgery Date Site/Laterality Comments SECTION 10/18/2016 PROCEDURE: HISTORICAL ; COMMENT: born at 34 weeks, pre-eclampsia WISDOM TOOTH EXTRACTION 2009 Bilateral PROCEDURE: HISTORICAL WISDOM TEETH EXTRACTION; COMMENT: no excess bleeding Medical History Medical History Date Comments Exposure to TB 08/08/2019 DX:Exposure to T B; COMMENT: PPD done 06/07/2018 as per visit note. 06/10/2018 PPD is negative. Family History Medical History Relation Name Comments Other: 3 brothers healthy 06/2019 Brother Other: healthy as of 06/2019 Father Asthma Mother Other: 2 yrs younger, healthy Sister Other: Asthma born 2010 Son 1 Sabrina Other: healthy born 34 wks gest 2017 Son 2 Onie l Breast cancer Neg Hx Relation Name Status Comments Brother Alive Father Alive Mother Alive Sister Alive Son 1 Jansiel Alive Son 2 Choco Alive Social History Tobacco Use Types Packs/Day Years Used Date Smoking Tobacco: Never Smokeless Tobacco: Never Tobacco Cessation:Counseling Given: Not Answered Alcohol Use Standard Drinks/Week Comments Yes 0 (1 standard drink = 0.6 oz pur e alcohol) Housing Instability Answer Date Recorde d Are you worried that in the next 2 months you may not have stable housing? No 08/09/2024 Food Access & Nutrition Answer Date Rec orded Do you have access to a vari ety of food including fruits and vegetables? Yes 08/09/2024 Access to Healthcare Answer Date Record ed Within the last 3 months, ho w many times did you visit the emergency department for your medical care? 1 08/09/2024 Health Literacy Answer Date Recorded How often do you need to hav e someone help you when you read instructions, pamphlets, or other written material from your doctor or pharmacy? Never 08/09/2024 Caregiver: How often do you need to have someone help you when you read instructions, pamphlets, or other written material from your doctor or pharmacy? Not on file 08/09/2024 Financial Risk Answer Date Recorded How hard is it for you to pa y for the very basics like food, housing, medical care, and air conditioning / heating? Somewhat hard 08/09/2024 Transportation Answer Date Recorded Has the lack of transportati on kept you from meetings, work, or from getting things needed for daily living? No Has the lack of transportati on kept you from medical appointments or from getting medications? No 08/09/2024 Social Isolation Answer Date Recorded How often do you feel lonely or isolated from th ose around you? Always 08/09/2024 Food Risk Answer Date Recorded Within the past 12 months we worried whether our food would run out before we got money to buy more. Never true 08/09/2024 Within the past 12 months th e food we bought just didn't last and we didn't have money to get more. Never true 08/09/2024 Dependent Care Answer Date Recorded Do you need help finding or paying for care for your loved ones. For example, child welfare counselor or elderly care for an older adult? No 08/09/2024 Education Answer Date Recorded Do you think completing more education or training, like finishing a GED, going to college, or learning a trade, would be helpful for you? No 08/09/2024 Employment and Income Answer Date Recor ded During the last four weeks, have you been actively looking for work? No 08/09/2024 Living Situation Answer Date Recorded What is your living situation? 0 08/09/2024 Comments No Sex and Gender Information Value Date Recorded Sex Assigned at Not on file Legal Sex Female 6:12 PM EST Gender Identity Not on file Sexual Orientation Not on file Obstetrics History Last Filed Vital Signs Vital Sign Reading Time Taken Comments Blood Pressure 116/72 08/09/2024 3:02 PM EDT Pulse 70 08/09/2024 3:02 PM EDT Temperature - - Respiratory Rate - - Oxygen Saturation - - Inhaled Oxygen Concentration - - Weight 76.3 kg (168 lb 3.2 oz) 08/09/2024 3:02 P M EDT Height 154.9 cm (5' 1 ) 08/09/2024 3:02 PM EDT Body Mass Index 31.78 08/09/2024 3:02 PM EDT Plan of Treatment Health Maintenance Due Date Last Done Comments Cervical Cancer Screening: Pap Smear 2013 Hepatitis B Vaccines (2 of 3 - 19+ 3-dose series) 07/05/2018 06/07/2018 Hepatitis C Screening 04/26/2022 COVID-19 Vaccine ( season) 2024 04/24/2021, 10/14/2020, 09/22/2020 Hypertension/CHF/CAD Annual BMP Blood Test 04/19/2025 04/19/2024, 08/20/2023 Depression Screening 08/09/2025 08/09/2024, 08/20/19 Social Influencers of Health Screening 08/09/2025 08/09/2024 Cholesterol Screening (Lipid Panel) 04/19/2029 04/19/2024, 06/06/2021 DTaP,Tdap,and Td Vaccines (5 - Td or Tdap) 06/01/2030 06/01/2020, 06/07/2018, 09/11/2016, Additional history exists HIB Vaccines Aged Out 07/26/2010 No longer eligi ble based on patient's age to complete this topic HIV Screening Completed 10/09/2017 Influenza Vaccine Completed 03/07/2024, , 02/26/2022, Additional history exists HPV Vaccines Aged Out No longer eligi ble based on patient's age to complete this topic Hepatitis A Vaccines Aged Out No long er eligible based on patient's age to complete this topic IPV Vaccines Aged Out No longer eligi ble based on patient's age to complete this topic MMR Vaccines Aged Out No longer eligi ble based on patient's age to complete this topic Meningococcal ACWY Vaccine Aged Out N o longer eligible based on patient's age to complete this topic Meningococcal B Vaccine Aged Out No l onger eligible based on patient's age to complete this topic Pneumococcal Vaccine: Pediatrics (0 to 5 Years) and At-Risk Patients (6 to 64 Years) Aged Out No longer eligible based on patient's age to complete this topic RSV Immunization Patients Under 20 months Aged Out No longer eligible based on patient's age to complete this topic Varicella Vaccines Aged Out No longer eligible based on patient's age to complete this topic Procedures Procedure Name Priority Date/Time Associated Diagnosis Comments COMPREHENSIVE METABOLIC PANEL Routine 04/19/2024 2:27 PM EST Screening for diabetes mellitus LIPID PANEL WITH REFLEX TO DIRECT LDL Routine 04/19/2024 2:27 PM EST Screening for hyperlipidemia HM DEPRESSION SCREENING Routine 08/20/2023 from Last 3 Months or Most Recently Relevant to Health Maintenance Results * (ABNORMAL) Lipid panel with reflex to direct LDL (04/19/2024 2:27 PM EST) Cholesterol 250(H) 0 - 200 mg/dL LAB CHEMISTRY METHOD 04/19/2024 6:45 PM [facility] Triglycerides 228(H) 0 - 150 mg/dL LAB CHEMISTRY METHOD 04/19/2024 6:45 PM EST [facility] HDL 50 >=40 mg/dL LAB CHEMISTRY METHOD 04/19/2024 6:45 PM [facility] LDL Calculated 154(H) 0 - 100 mg/dL LAB CHEMISTRY METHOD 04/19/2024 6:45 PM [facility] VLDL Cholesterol Thien 45.6 mg/dL LAB CHEMISTRY METHOD 04/19/2024 6:45 PM [facility] Non HDL Chol. (LDL+VLDL) 200(H) <145 mg/dL LAB CHEMISTRY METHOD 04/19/2024 6:45 PM [facility] Chol/HDL Ratio 5.0(H) 0.0 - 4.4 LAB CHEMISTRY METHOD 04/19/2024 6:45 PM [facility] Blood Venous blood specimen / Unknown Venipuncture / Unknown 04/19/2024 2:27 PM EST 04/19/2024 2:27 PM EST us Diallo Vitale MD LAB BLOOD ORDERABLES Final Res ult [facility] [address] [place] [address], [place] [phone] * Comprehensive metabolic panel (04/19/2024 2:27 PM EST) Sodium 140 133 - 145 mmol/L LAB CHEMISTRY METHOD 04/19/2024 6:45 PM [facility] Potassium 4.0 3.5 - 5.5 mmol/L LAB CHEMISTRY METHOD 04/19/2024 6:45 PM [facility] Chloride 107 96 - 110 mmol/L LAB CHEMISTRY METHOD 04/19/2024 6:45 PM [facility] CO2 28 21 - 32 mmol/L LAB CHEMISTRY METHOD 04/19/2024 6:45 PM [facility] Anion Gap 5 3 - 11 LAB CHEMISTRY METHOD 04/19/2024 6:45 PM [facility] Glucose 92 70 - 100 mg/dL LAB CHEMISTRY METHOD 04/19/2024 6:45 PM [facility] BUN 14 5 - 25 mg/dL LAB CHEMISTRY METHOD 04/19/2024 6:45 PM [facility] Creatinine 0.70 0.50 - 1.10 mg/dL LAB CHEMISTRY METHOD 04/19/2024 6:45 PM [facility] eGFR 118 >=60 mL/min/1. 73m2 LAB CHEMISTRY METHOD 04/19/2024 6:45 PM [facility] Comment:Calculation based on the Chronic Kidney Disease Epidemiology Collaboration (CKD-EPI) equation refit without adjustment for race. BUN/Creatinine Ratio 20.0 LAB CHEMISTRY METHOD 04/19/2024 6:45 PM [facility] Calcium 9.8 8.5 - 10.5 mg/dL LAB CHEMISTRY METHOD 04/19/2024 6:45 PM [facility] AST (SGOT) 13 10 - 42 unit/L LAB CHEMISTRY METHOD 04/19/2024 6:45 PM [facility] ALT (SGPT) 19 10 - 60 unit/L LAB CHEMISTRY METHOD 04/19/2024 6:45 PM [facility] Alkaline Phosphatase 54 42 - 121 unit/L LAB CHEMISTRY METHOD 04/19/2024 6:45 PM [facility] Total Protein 7.5 6.0 - 8.0 g/dL LAB CHEMISTRY METHOD 04/19/2024 6:45 PM [facility] Albumin 4.1 3.2 - 5.0 g/dL LAB CHEMISTRY METHOD 04/19/2024 6:45 PM [facility] Total Bilirubin 0.4 0.0 - 1.4 mg/dL LAB CHEMISTRY METHOD 04/19/2024 6:45 PM [facility] Blood Venous blood specimen / Unknown Venipuncture / Unknown 04/19/2024 2:27 PM EST 04/19/2024 2:27 PM EST Diallo Vitale MD LAB BLOOD ORDERABLES Final Res ult [facility] [address] [place] [address], [place] [phone] * Depression Screening (08/20/2023) Pathologist [facility] Depression Screening Abstracted Historical Provider HEALTH MAINTENANCE Final Result from Last 3 Months or Most Recently Relevant to Health Maintenance Insurance [facility] Care Teams Planning Assistant Relationship Specialty Start Date End Date Diallo Vitale MD [address] [place] [phone] PCP - General Internal Medicine 03/08/20
[2024-11-21 16:07] VITALS: BP 117/79; PULSE 64; RESP 18; TEMP 36.4; O2SAT 100
[2024-11-21 16:12] LABS: Appearance Urine Clear; Color Urine Yellow; Glucose Urine UA Negative (Negative); Leukocyte Esterase Urine Small (1+) (Negative); Nitrite Urine Negative (Negative); Specific Gravity - Urine 1.015 (1.005-1.025); UMIC TRIGGER UACC YES; Urine Blood Negative (Negative); Urine Ketones Negative (Negative); Urine Protein Negative (Neg-Trace)
[2024-11-21 16:16] LABS: Bacteria Urine Trace (None Seen); Hyaline Casts Urine 0-2 /LPF (0-2); RBC Urine 0-2 /HPF (0-2); UACC Culture Trigger YES
[2024-11-21] MEDS: 0.9 % Sodium Chloride 1,000 ML 999 ML IV ×2 (16:37→17:51)
[2024-11-21] MEDS: Acetaminophen 1,000 MG/100 ML PIGGYBACK 400 MG IV (16:37)
[2024-11-21 17:22] LABS: Appearance Urine Clear; Color Urine Yellow; Glucose Urine UA Negative (Negative); Leukocyte Esterase Urine Negative (Negative); Nitrite Urine Negative (Negative); Specific Gravity - Urine <= 1.005 (1.005-1.025); Urine Blood Negative (Negative); Urine Ketones Negative (Negative); Urine Protein Negative (Neg-Trace)
[2024-11-21 18:48] VITALS: BP 119/66; PULSE 79; RESP 20; TEMP 36.9; O2SAT 100
--- NOTE | 2024-11-21 19:24 | PC.NURSE ---
MRI screening from completed with pt
[2024-11-21] MEDS: Midazolam HCl 2 MG/2 ML VIAL 4 MG IVPUSH (19:51)
--- NOTE | 2024-11-21 19:57 | PC.NURSE ---
pt off unit for MRI
[2024-11-21] MEDS: gadobutroL 10 ML VIAL IVPUSH (20:43)
[2024-11-21 21:50] VITALS: BP 103/66; PULSE 79; RESP 16; TEMP 36.8; O2SAT 98
== END 2024-11-21 21:51 | disposition home or self-care (01) ==
PROVIDERS: Physician Assistant Medical; Emergency Provider Emergency Medicine; PCP Nurse Practitioner
DX: R51.9 Headache, unspecified (principal); Z03.818 Encounter for observation for suspected exposure to other biological agents ruled out
CPT/HCPCS: 0241U; 70450; 70553; 80053; 81001; 81003; 83735; 84702; 85025; 87086; 96361; 96374; 96375; 99284; 99285; A9585; J0131; J2250

== ENCOUNTER → 2024-11-21 17:03 | Outpatient (BNV) | payer OTHER, SELFPAY | PROVIDERS: Emergency Provider Emergency Medicine; PCP Nurse Practitioner; Visit Provider Radiology Diagnostic Radiology | DX: G93.89 Other specified disorders of brain (principal); E23.6 Other disorders of pituitary gland; R51.9 Headache, unspecified | CPT/HCPCS: 70450; 70553 ==